=== PATIENT | male | born 1970 | race Native Hawaiian/Other Pacific Islander ===

== ENCOUNTER 2020-11-05 22:27 | Emergency (ER) | payer OTHER ==
[~2020-11-05] VITALS: Ht 193 cm; Wt 81.6 kg
[2020-11-05 22:50] VITALS: BP 12/88; TEMP 97.7
== END 2020-11-06 00:15 | disposition home or self-care (01) ==
LOC: ED 22:27
DX: M70.21 Olecranon bursitis, right elbow (principal)
CPT/HCPCS: 99281

== ENCOUNTER 2021-02-22 09:09 | Outpatient (CLI) | payer OTHER ==
[2021-02-22 09:29] LABS: PLATELET COUNT 189 K/uL (142-355)
[2021-02-22 09:47] LABS: POTASSIUM 3.7 mmol/L (3.6-5.2)
== END 2021-02-22 19:10 | disposition home or self-care (01) ==
LOC: LABW 09:09
PROVIDERS: ATTEND Nurse Practitioner Family
DX: Z20.822 Contact with and (suspected) exposure to COVID-19 (principal)
CPT/HCPCS: 36415; 80048; 85027; 85379; 86140

== ENCOUNTER 2021-03-08 16:17 | Outpatient (CLI) | payer OTHER | END 2021-03-08 19:05 | disposition home or self-care (01) | LOC: LABW 16:17 | PROVIDERS: ATTEND Nurse Practitioner Primary Care | DX: Z09 Encounter for follow-up examination after completed treatment for conditions other than malignant neoplasm (principal); Z86.16 Personal history of COVID-19 | CPT/HCPCS: 87502 ==